=== PATIENT | male | born 1940 | race Caucasian/White ===

== ENCOUNTER 2024-05-29 09:27 | Outpatient (AMB) | payer MEDICARE, SELFPAY ==
--- NOTE | 2024-05-29 09:33 | A.OFFVIS_ITS ---
VS Expanded 05/29/24 09:34 05/31/24 21:20 Height 5 ft 8 in 5 ft 8 in Weight 173 lb 1.006 oz 173 lb BMI 26.3 26.3 Intake Visit Reasons: T2DM/LVM w interp Nutrition Presentation Details: Pt presents for MNT for T2DM. Pt was referred by Delia Maya NP Pt presents with son during this appt typical intake 5 am coffee/milk with bread /butter 8 am pancake or farina or oatmeal or sorrullo , coffee with milk and diet sugar 12: soup chicken (with noodle/potato) calderon diet or juice diet snacks : sugar free cookies or crackers , sugar free fruits snacks, glass of milk 4 pm root vegetable , cod /tomato, diet juice 6pm: glass of milk and crackers physical activity : sedentary Pt on farxiga 10 mg/d, glipizide 10 mg twice a day metformin 1000 mg twice/day and started Mounjaro 2.5 mg/wk last week. Pt did not bring glucometer to this appt to review BS Monitoring Most Recent Diabetes Results: No Data to Display CQX-Vmfelvv-Df.Jeor Equation Height: 5 ft 8 in Weight: 173 lb Resting Metabolic Rate: 1464.99 Calculated Activity Level: Sedentary Calories Needed to Maintain Weight: 1757.99 Diagnosis Nutrition problem #1: food nutri know defi As related to (etiology) #1: diagnosis As evidenced by (sign/symptom) #1: knowledge deficit of diet Monitoring/Goals Nutrition problem monitoring: level of knowledge/skill Outcome progress: verbalized understanding Learning/Education Readiness to learn: good Assessment & Plan Assessment & Plan (1) T2DM (type 2 diabetes mellitus): Code(s): E11.9 - Type 2 diabetes mellitus without complications Category: Medical Plan: Wt: 78 Kg ( 05/2024 ) Est kcal needs as per 25kcal/k (40% carb, 30% protein/fat) Est fluid needs as per 25 ml/d: 2000 Est prot per day as per 1 g/kg bw: 78 Recommend fiber intake : 8-10 g per day and gradually increase to 25-28 g per day for women and 35-38 g for men or as tolerated Recommend sodium intake per day : less than 1500 mg less than 2000 mg Educated patient on: ( R = reviewed V = verbalizes understanding N/R = needs review N/A = not applicable * Food sources of carbohydrate, adequate serving sizes and its role in various health conditions: R * Differences between complex carbohydrates a simple carbohydrates, role of fiber in diet: R V N/R * Lean protein sources of foods: R V NR * Differences between types of fats and role in diet (mono on saturated fat fatty acids, saturated fatty acids, trans fats): R V N/R * Food sources of sodium in salt and healthy modifications for heart health in kidney health: R V R/V * Vitamins and minerals: R V N/R * Healthy plate method concept: R * Physical activity: Benefits a precaution: R V N/R * Hypoglycemia protocol (rule of 15): R V N/R * Dietary prevention of Hyperglycemia: R Patient Instructions: follow healthy plate method at dinner time Choose complex/high glycemic index foods Reduce total carb at snack to less than 20 g and include a serving of protein - see meal plan /snacks as reference Coding Level of Care Code Nutr Indiv Intake (94537) Diagnoses T2DM (type 2 diabetes mellitus) E11.9 Time Spent (min) 30
[2024-05-29 09:34] VITALS: BMI 26.3
[2024-05-31 21:20] VITALS: BMI 26.3
== END 2024-05-29 10:27 | disposition home or self-care (01) ==
PROVIDERS: PCP Registered Nurse; Visit Provider Dietitian, Registered
DX: E11.9 Type 2 diabetes mellitus without complications (principal)

== ENCOUNTER → 2024-05-29 09:27 | Outpatient (BNVA) | payer MEDICARE, SELFPAY | PROVIDERS: PCP Registered Nurse; Visit Provider Dietitian, Registered | DX: E11.9 Type 2 diabetes mellitus without complications (principal); Z79.84 Long term (current) use of oral hypoglycemic drugs | CPT/HCPCS: 97802 ==

== ENCOUNTER 2024-06-27 09:31 | Outpatient (AMB) | payer MEDICARE, SELFPAY ==
[2024-06-27 10:12] VITALS: BMI 26.5
--- NOTE | 2024-06-27 10:12 | A.OFFVIS_ITS ---
VS Expanded 06/27/24 10:12 Height 5 ft 8 in Weight 174 lb 6.17 oz BMI 26.5 Intake Visit Reasons: [id number] Nutrition Presentation Details: Pt presents for MNT f/u for T2DM. Pt presents with son during this appt Pt reports doing well Has 3 meals/day morning meals coffee with peanut butter crackers or oatmeal with cow's milk mid afternoon meal Sand (tuna or egg or ham/cheese) with milk Dinner: soup with root veg and chicken or beef snacks on sugar free pudding, or cracker with cheese or fruit cup or glass of milk physical activity: walking as able etoh/smoking: denies BS Monitoring Most Recent Diabetes Results: No Data to Display Assessment & Plan Assessment & Plan (1) T2DM (type 2 diabetes mellitus): Code(s): E11.9 - Type 2 diabetes mellitus without complications Category: Medical Plan: Wt: 78 Kg ( 05/2024 ), 79kg (06/2024) Est kcal needs as per 25kcal/k (40% carb, 30% protein/fat) Est fluid needs as per 25 ml/d: 2000 Est prot per day as per 1 g/kg bw: 78 Recommend fiber intake : 8-10 g per day and gradually increase to 25-28 g per day for women and 35-38 g for men or as tolerated Recommend sodium intake per day : less than 1500 mg less than 2000 mg Educated patient on: ( R = reviewed V = verbalizes understanding N/R = needs review N/A = not applicable * Food sources of carbohydrate, adequate serving sizes and its role in various health conditions: R * Differences between complex carbohydrates a simple carbohydrates, role of fiber in diet: R V N/R * Lean protein sources of foods: R V NR * Differences between types of fats and role in diet (mono on saturated fat fatty acids, saturated fatty acids, trans fats): R V N/R * Food sources of sodium in salt and healthy modifications for heart health in kidney health: R * Vitamins and minerals: R V N/R * Healthy plate method concept: R * Physical activity: Benefits a precaution: R V N/R * Hypoglycemia protocol (rule of 15): R V N/R * Dietary prevention of Hyperglycemia: R Patient Instructions: Be mindful of high salt foods and high salt seasonings Choose less processed foods - see list of options Coding Level of Care Code Nutr Indiv Subseq (87802) Diagnoses T2DM (type 2 diabetes mellitus) E11.9 Time Spent (min) 30
== END 2024-06-27 10:45 | disposition home or self-care (01) ==
PROVIDERS: PCP Registered Nurse; Visit Provider Dietitian, Registered
DX: E11.9 Type 2 diabetes mellitus without complications (principal)

== ENCOUNTER → 2024-06-27 09:31 | Outpatient (BNVA) | payer MEDICARE, SELFPAY | PROVIDERS: PCP Registered Nurse; Visit Provider Dietitian, Registered | DX: E11.9 Type 2 diabetes mellitus without complications (principal) | CPT/HCPCS: 97803 ==

== ENCOUNTER 2024-09-27 09:58 | Outpatient (AMB) | payer MEDICARE, SELFPAY ==
[2024-09-27 10:21] VITALS: BMI 26.1
--- NOTE | 2024-09-27 10:21 | A.OFFVIS_ITS ---
VS Expanded 09/27/24 10:21 Height 5 ft 8 in Weight 171 lb 11.841 oz BMI 26.1 Intake Visit Reasons: t2dm Nutrition Presentation Details: Pt presents for MNT f/u for t2DM Pt presents with son during the appt. Pt reports blood sugar are 140-170s in fasting state improving from > 250s Pt has 2-3 meals per day B: 2 slice sof bread with egg/ham or hot cereal, coffee iwth diet sugar L: root veg, codfish , water or milk snack: sandw or pudding sugar free or cereal with milk or lunch meal food freuqency fruits 1-2/d dairy 3-4 /d protein : 4 oz/, 2-3 x/day plus milk, veg veg: nonstarchy veg, legumes (1-2 serving/day) starches > 20 serving/d fried foods 1-2x/m beverages: water, low sugar juices, milk BS Monitoring Most Recent Diabetes Results: No Data to Display Assessment & Plan Assessment & Plan (1) T2DM (type 2 diabetes mellitus): Code(s): E11.9 - Type 2 diabetes mellitus without complications Category: Medical Plan: Wt: 78 Kg ( 05/2024 ), 79kg (06/2024), 78 kg (08/2024) Est kcal needs as per 25kcal/k (40% carb, 30% protein/fat) Est fluid needs as per 25 ml/d: 2000 Est prot per day as per 1 g/kg bw: 78 Recommend fiber intake : 8-10 g per day and gradually increase to 25-28 g per day for women and 35-38 g for men or as tolerated Recommend sodium intake per day : less than 1500 mg less than 2000 mg Educated patient on: ( R = reviewed V = verbalizes understanding N/R = needs review N/A = not applicable * Food sources of carbohydrate, adequate serving sizes and its role in various health conditions: R * Differences between complex carbohydrates a simple carbohydrates, role of fiber in diet: R * Lean protein sources of foods: R V NR * Differences between types of fats and role in diet (mono on saturated fat fatty acids, saturated fatty acids, trans fats): R * Food sources of sodium in salt and healthy modifications for heart health in kidney health: R * Vitamins and minerals: R V N/R * Healthy plate method concept: R * Physical activity: Benefits a precaution: R * Hypoglycemia protocol (rule of 15): R * Dietary prevention of Hyperglycemia: R Patient Instructions: Caution with hypoglycemia Follow rule of 15 to treat low blood sugar - refer to educational material Continue working on following healthy plate method Coding Level of Care Code Nutr Indiv Subseq (18412) Diagnoses T2DM (type 2 diabetes mellitus) E11.9 Time Spent (min) 30
== END 2024-09-27 10:56 | disposition home or self-care (01) ==
LOC: HO.ENCR 09:58
PROVIDERS: PCP Registered Nurse; Visit Provider Dietitian, Registered
DX: E11.9 Type 2 diabetes mellitus without complications (principal)

== ENCOUNTER → 2024-09-27 09:58 | Outpatient (BNVA) | payer MEDICARE, SELFPAY | PROVIDERS: PCP Registered Nurse; Visit Provider Dietitian, Registered | DX: E11.9 Type 2 diabetes mellitus without complications (principal); Z71.3 Dietary counseling and surveillance | CPT/HCPCS: 97803 ==